=== PATIENT | female | born 1995 | race Caucasian/White ===

== ENCOUNTER 2023-08-08 07:45 | Emergency (ER) | payer MEDICAID, OTHER ==
[~2023-08-08] VITALS: Ht 160 cm; Wt 62.0 kg
[2023-08-08 08:08] VITALS: O2SAT 98
[2023-08-08] MEDS ORDERED: IBUPROFEN 400MG TABLET PO ONE (08:45)
[2023-08-08 10:07] VITALS: BP 100/52; PULSE 76; RESP 16; TEMP 98.2
== END 2023-08-08 10:09 | disposition home or self-care (01) ==
LOC: ER 07:45
DX: S63.601A Unspecified sprain of right thumb, initial encounter (principal); W19.XXXA Unspecified fall, initial encounter; Y93.89 Activity, other specified; Y92.89 Other specified places as the place of occurrence of the external cause; Y99.8 Other external cause status
CPT/HCPCS: 29130; 73140; 81025; 99283